=== PATIENT | female | born 1940 | race Caucasian/White ===

== ENCOUNTER 2021-08-22 11:46 | Emergency (ER) | payer SELFPAY ==
[~2021-08-22] VITALS: Ht 149.9 cm; Wt 78.0 kg
--- NOTE | 2021-08-22 12:07 | NUR ---
IV LINE IS ESTABLISHED, BLOOD SPECIMEN COLLECTED AND SENT TO THE LAB. THE LINE IS SALINE LOCKED.
--- NOTE | 2021-08-22 12:16 | NUR ---
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 The patient is alert and oriented x3. In room air and denies SOB. Respiration regular and unlabored. Attached to the monitior. Warm blanket provided for comfort. Will continue to monitor the patient.
[2021-08-22 12:32] LABS: BASOPHILS # (AUTO) 0.1 K/uL (0.0-0.2); BASOPHILS % (AUTO) 0.9 % (0.0-2.0); EOSINOPHILS % (AUTO) 3.7 % (0.0-6.0); HEMATOCRIT 35 % (33-45); HEMOGLOBIN 11.6 g/dL (11.5-14.8); LYMPHOCYTES # (AUTO) 1.7 K/uL (0.8-4.8); LYMPHOCYTES % (AUTO) 29.4 % (20.0-44.0); MEAN CORPUSCULAR HGB CONC 33 g/dl (31.0-36.0); MEAN CORPUSCULAR VOLUME 88 fL (82-100); MONOCYTES # (AUTO) 0.5 K/uL (0.1-1.30); MONOCYTES % (AUTO) 9.5 % (2.0-12.0); NEUTROPHILS # (AUTO) 3.2 K/uL (1.8-8.9); NEUTROPHILS % (AUTO) 56.5 % (43.0-81.0); PLATELET COUNT (AUTO) 193 K/uL (150-450); RED BLOOD CELL COUNT(AUTO) 4.01 MIL/uL (4.0-5.2); WHITE BLOOD COUNT (AUTO) 5.7 K/uL (4.3-11.0)
[2021-08-22 12:43] LABS: CALCIUM, SERUM 8.9 mg/dL (8.5-10.1); CARBON DIOXIDE 26 mmol/L (21-32); CHLORIDE 102 mmol/L (98-107); CREATININE 0.7 mg/dL (0.6-1.3); GLUCOSE 99 mg/dL (74-106); POTASSIUM 3.8 mmol/L (3.5-5.1); SODIUM SERUM 135 mmol/L (136-145); UREA NITROGEN, BLOOD 29 mg/dL (7-18)
[2021-08-22 12:56] LABS: ALANINE AMINOTRANSFERASE 22 U/L (12-78); ALBUMIN 3.6 g/dL (3.4-5.0); ALKALINE PHOSPHATASE 128 U/L (46-116); ASPARTATE AMINOTRANSFERASE 12 U/L (15-37); BILIRUBIN,DIRECT 0.2 mg/dL (0.0-0.2); BILIRUBIN,TOTAL 0.9 mg/dL (0.2-1.0); TOTAL PROTEIN, SERUM 7.7 g/dL (6.4-8.2)
[2021-08-22] MEDS ORDERED: BENAZEPRIL HCL 10 MG TABLET ONE (12:57)
[2021-08-22] MEDS ORDERED: BENAZEPRIL HCL 10 MG TABLET PO ONE (13:00)
[2021-08-22] MEDS ORDERED: BENA40TA8 PO (14:08)
--- NOTE | 2021-08-22 14:15 | NUR ---
DR WOLF MADE AWARE OF BP 184/102. WAITING FOR NEW ORDERS.
[2021-08-22] MEDS ORDERED: LABETALOL HCL IV 100MG VIAL IV ONE (14:30)
[2021-08-22] MEDS ORDERED: LABETALOL HCL IV 100MG VIAL ONE (14:32)
[2021-08-22 16:10] VITALS: BP 166/71
--- NOTE | 2021-08-22 16:10 | NUR ---
IV removed. Catheter intact and site benign. Pressure and 4x4 applied to site. No bleeding noted.Patient discharged to home with grand daughter in stable condition. Written and verbal after care instructions given. Patient verbalizes understanding of instruction.
== END 2021-08-22 16:11 | disposition home or self-care (01) ==
LOC: ER 11:49
DX: I10 Essential (primary) hypertension (principal); Z79.899 Other long term (current) drug therapy
CPT/HCPCS: 36415; 70450; 80048; 80076; 83880; 84484; 85007; 85025; 93005; 96374; 99285; J3490